=== PATIENT | male | born 1930 | race African-American/Black ===

== ENCOUNTER 2016-06-08 14:49 | Emergency (ER) | payer OTHER ==
[~2016-06-08] VITALS: Ht 175.3 cm; Wt 75.7 kg
[~2016-06-08 14:49] MED LIST: DOXAZOSIN MESYLA2 MG ORAL; FERROUS SULFAT325 MG ORAL; METFORMIN HCL500 M1 ORAL; PROSCAR5 MG ORAL
[2016-06-08] MEDS ORDERED: Albuterol ud Inhalation HHN ONE (15:30)
--- NOTE | 2016-06-08 15:35 | Emergency Room Report ---
History of Present Illness General Chief Complaint: Stroke Symptoms Source: Family Member Present Illness HPI Patient is an 85-year-old male who presented after having increased shortness of breath and abdominal pain. Per the patient's daughter patient having had pain for several years. This had been located in his right lower abdomen. 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 The patient denied any fever. He reported having some cough. Allergies: Coded Allergies: No Known Allergies (Unverified , 01/30/14) Patient History Past Medical History: see triage record Reviewed Nursing Documentation: PMH: Agreed, PSxH: Agreed Nursing Documentation-PMH Past Medical History: No History, Except For Hx Hypertension: Yes Hx Diabetes: Yes Hx Cancer: No Hx Gastrointestinal Problems: No Hx Neurological Problems: No Review of Systems All Other Systems: negative except mentioned in HPI Physical Exam Vital Signs Date Time Temp Pulse Resp B/P Pulse Ox O2 Delivery O2 Flow Rate FiO2 06/08/16 15:14 69 16 155/66 99 Room Air Sp02 EP Interpretation: reviewed, normal General Appearance: normal inspection, well appearing, no apparent distress, alert, GCS 15 Head: atraumatic ENT: normal ENT inspection, hearing grossly normal, normal voice Neck: normal inspection, full range of motion, supple, no bony tend Respiratory: normal inspection, lungs clear, normal breath sounds, no respiratory distress, no retraction, no wheezing Cardiovascular #1: regular rate, rhythm, no edema Gastrointestinal: normal inspection, normal bowel sounds, non tender, soft, no guarding, no hernia Genitourinary: no CVA tenderness Musculoskeletal: normal inspection, back normal, normal range of motion Neurologic: normal inspection, alert, oriented x3, responsive, coater helper III-XII nml as tested, motor strength/tone normal, speech normal Psychiatric: normal inspection, judgement/insight normal, mood/affect normal Skin: normal inspection, normal color, no rash Medical Decision Making Diagnostic Impression: Primary Impression: Gallstone Additional Impression: Prostatic hypertrophy, benign ER Course Patient presented for shortness of breath.Differential included but was not limited to anemia, pneumonia, pneumothorax, myocardial infarction, pericardial effusion, congestive heart failure, acidosis. Because of complexity of patient' s case laboratory testing and imaging studies were ordered.Lab for studies showed no evidence of acute infection. The patient was noted to have negative troponin. CT imaging of the head was ordered due to patient's recent fall anticoagulant use. CT the head read by radiology showed no evident hemorrhage with a chronic stable changes. CT abdomen and pelvis read by radiologist showed gallstones as well as hiatal hernia there were no acute inflammatory changes noted. The patient is advised to follow up with primary care doctor in 1-2 days. Patient is advised to return if any worsening condition or if any changes in status that are concerning. The patient daughter was advised that she may need to have the patient followup with urologist for his prostate issues. Labs Test 06/08/16 15:40 White Blood Count 6.4 K/UL (4.8-10.8) Red Blood Count 4.70 M/UL (4.70-6.10) Hemoglobin 12.8 G/DL (14.2-18.0) Hematocrit 42.1 % (42.0-52.0) Mean Corpuscular Volume 90 FL (80-99) Mean Corpuscular Hemoglobin 27.2 PG (27.0-31.0) Mean Corpuscular Hemoglobin Concent 30.3 G/DL (32.0-36.0) Red Cell Distribution Width 13.2 % (11.6-14.8) Platelet Count 148 K/UL (150-450) Mean Platelet Volume 7.2 FL (6.5-10.1) Neutrophils (%) (Auto) 56.1 % (45.0-75.0) Lymphocytes (%) (Auto) 30.8 % (20.0-45.0) Monocytes (%) (Auto) 7.4 % (1.0-10.0) Eosinophils (%) (Auto) 4.9 % (0.0-3.0) Basophils (%) (Auto) 0.9 % (0.0-2.0) Sodium Level 138 mEQ/L (135-145) Potassium Level 4.4 mEQ/L (3.4-4.9) Chloride Level 97 mEQ/L (98-107) Carbon Dioxide Level 25 mEQ/L (20-30) Anion Gap 16 (5-15) Blood Urea Nitrogen 26 mg/dL (7-23) Creatinine 1.5 mg/dL (0.7-1.2) Estimat Glomerular Filtration Rate mL/min (>60) Glucose Level 134 mg/dL (74-106) Lactic Acid Level 1.70 mmol/L (0.66-2.22) Calcium Level 10.4 mg/dL (8.6-10.2) Total Bilirubin 0.7 mg/dL (0.0-1.2) Aspartate Amino Transf (AST/SGOT) 17 U/L (5-40) Alanine Aminotransferase (ALT/SGPT) 7 U/L (3-41) Alkaline Phosphatase 93 U/L (40-129) Total Creatine Kinase 74 U/L (38-174) Creatine Kinase MB < 1.5 ng/mL (< 6.7) Creatine Kinase MB Relative Index Troponin I < 0.30 ng/mL (<=0.30) Pro-B-Type Natriuretic Peptide 110 pg/mL (0-450) Total Protein 8.1 g/dL (6.6-8.7) Albumin 4.7 g/dL (3.5-5.2) Globulin 3.4 g/dL Albumin/Globulin Ratio 1.3 (1.0-2.7) Last Vital Signs Date Time Temp Pulse Resp B/P Pulse Ox O2 Delivery O2 Flow Rate FiO2 06/08/16 15:14 69 16 155/66 99 Room Air Status: improved Disposition: HOME, SELF-CARE Condition: Stable Jani Barraza Jun 08, 2016 15:34
[2016-06-08 15:45] VITALS: BP 153/67
[2016-06-08 16:05] LABS: BASOPHILS % (AUTO) 0.9 % (0.0-2.0); EOSINOPHILS % (AUTO) 4.9 % (0.0-3.0); LYMPHOCYTES % (AUTO) 30.8 % (20.0-45.0); MEAN CORPUSCULAR HEMOGLOBIN 27.2 PG (27.0-31.0); MEAN CORPUSCULAR HGB CONC 30.3 G/DL (32.0-36.0); MEAN CORPUSCULAR VOLUME 90 FL (80-99); MEAN PLATELET VOLUME 7.2 FL (6.5-10.1); MONOCYTES % (AUTO) 7.4 % (1.0-10.0); NEUTROPHILS % (AUTO) 56.1 % (45.0-75.0); PLATELET COUNT 148 K/UL (150-450); RED CELL DISTRIBUTION WIDTH 13.2 % (11.6-14.8); WHITE BLOOD COUNT 6.4 K/UL (4.8-10.8)
[2016-06-08 16:21] LABS: ALANINE AMINOTRANSFERASE 7 U/L (3-41); ALBUMIN/GLOBULIN RATIO 1.3 (1.0-2.7); ANION GAP 16 (5-15); ASPARTATE AMINO TRANSFERASE 17 U/L (5-40); CALCIUM 10.4 mg/dL (8.6-10.2); CARBON DIOXIDE 25 mEQ/L (20-30); CHLORIDE 97 mEQ/L (98-107); CREATININE 1.5 mg/dL (0.7-1.2); HEMOLYSIS 15; POTASSIUM 4.4 mEQ/L (3.4-4.9); SODIUM 138 mEQ/L (135-145); TOTAL PROTEIN 8.1 g/dL (6.6-8.7)
[2016-06-08 16:26] LABS: TROPONIN I < 0.30 ng/mL (<=0.30)
[2016-06-08 16:32] LABS: CKMB < 1.5 ng/mL (< 6.7)
[2016-06-08 18:24] VITALS: BP 157/72
[2016-06-08 18:25] VITALS: BP 153/67
--- NOTE | 2016-06-09 09:33 | Diagnostic Imaging Report ---
Indication: Abdominal pain Technique: Continuous helical transaxial imaging of the abdomen and pelvis was obtained from the lung bases to the pubic symphysis. No intravenous contrast was administered. Coronal 2-D reformats were also obtained. Total Dose length Product (DLP): [address] Dose Index Volume (CTDIvol): 13 mGy Comparison: none Findings: The lung bases demonstrate mild bronchiectasis associated with some linear reticular densities likely scarring. Small hiatal hernia is present. There is artifact associated with the patient's arms. There are innumerable gallstones filling the gallbladder lumen. Aorta is calcified. There are hypodensities within the left kidney. These may be cysts but incompletely assessed on the current exam as obtained without contrast material. Suture noted in the right hemicolon indicative of partial resection. The appendix is not identified likely removed. IVC filter is present. There is a tiny high density focus in the lower pole the right kidney likely represent nonobstructive calculus. Diverticula are present in the colon. Urinary bladder is unremarkable. Prostate is enlarged measures 4.7 x 5.6 cm. There are dimension craniocaudal 6.4 cm. There is no free fluid or free air. Impression: Innumerable gallstones. Tiny nonobstructive stones within the lower pole the right kidney. Atherosclerotic vascular disease. A left renal masses likely cysts a. Suggest correlation with ultrasound. Status post partial right colonic resection. Basilar scarring and bronchiectasis. Mild diverticulosis Prostate hypertrophy Agree with the preliminary report by Dr. Mckeon. Note: There was suggestion of the possibility of iliac vein thrombosis. Could correlation with the contrast enhanced CT or ultrasound. Patient does have IVC filter in place. The CT scanner at [facility] is accredited by the [employer] and the scans are performed using protocols designed to limit radiation exposure to as low as reasonably achievable to attain images of sufficient resolution adequate for diagnostic evaluation.
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
--- NOTE | 2016-06-10 12:39 | Cardiology Report ---
APPROVED REPORT EKG Measurement Heart [id number] Normal sinus rhythm Left axis deviation Nonspecific T wave abnormality Abnormal ECG
--- NOTE | 2016-06-11 14:06 | Diagnostic Imaging Report ---
Indication: Headache Technique: Contiguous 5 mm thick transaxial imaging of the head obtained in a Siemens Sensation [address] scanner. Soft tissue and bone windows generated. Total Dose length Product (DLP): [address] Dose Index Volume (CTDIvol): 70.38 mGy Comparison: 04/04/16 Findings: There is mild prominence of the ventricles, basal cisterns, and cerebral sulci consistent with atrophy. Mild, nonspecific, white matter hypoattenuation is noted throughout the brain consistent with chronic small vessel disease. Old lacunar infarcts in the left thalamus and left putamen are again noted unchanged. There is no midline shift, edema, acute hemorrhage, mass effect, or abnormal extra-axial fluid collections. Bones and extra osseous soft tissues are unremarkable. Moderate heterogeneous opacification of the right maxillary sinus again demonstrated. Some calcification noted within the sinus indicative of inspissated mucus. Impression: No acute intracranial bleed, mass effect or edema. Mild atrophy of the brain. Old lacunar infarcts Nonspecific white matter hypoattenuation probably due to chronic small vessel disease. Chronic right maxillary sinusitis. The CT scanner at [facility] is accredited by the [employer] and the scans are performed using protocols designed to limit radiation exposure to as low as reasonably achievable to attain images of sufficient resolution adequate for diagnostic evaluation.
== END 2016-06-08 18:28 | disposition home or self-care (01) ==
LOC: EMR 15:30
DX: K80.80 Other cholelithiasis without obstruction (principal); N40.0 Benign prostatic hyperplasia without lower urinary tract symptoms; R06.02 Shortness of breath; R10.9 Unspecified abdominal pain; Z86.718 Personal history of other venous thrombosis and embolism; Z79.01 Long term (current) use of anticoagulants; E11.9 Type 2 diabetes mellitus without complications; K44.9 Diaphragmatic hernia without obstruction or gangrene; I10 Essential (primary) hypertension
CPT/HCPCS: 36415; 70450; 71010; 74176; 80053; 82550; 82553; 83605; 83880; 84484; 85025; 87040; 93005; 94640; 94664; 99284

== ENCOUNTER 2017-12-15 11:20 | Inpatient (IN) | payer MEDICARE, OTHER ==
[~2017-12-15] VITALS: Ht 177.8 cm; Wt 72.7 kg
[2017-12-15] MEDS ORDERED: Sodium Chloride 500ML 500 ML IV ONE (11:27)
[2017-12-15 11:59] LABS: BASOPHILS % (AUTO) 0.9 % (0.0-2.0); EOSINOPHILS % (AUTO) 2.2 % (0.0-3.0); HEMATOCRIT 37.5 % (42.0-52.0); HEMOGLOBIN 11.6 G/DL (14.2-18.0); MEAN CORPUSCULAR VOLUME 89 FL (80-99); MONOCYTES % (AUTO) 6.8 % (1.0-10.0); NEUTROPHILS % (AUTO) 72.1 % (45.0-75.0); PLATELET COUNT 183 K/UL (150-450); RED BLOOD COUNT 4.23 M/UL (4.70-6.10); RED CELL DISTRIBUTION WIDTH 12.6 % (11.6-14.8); WHITE BLOOD COUNT 8.5 K/UL (4.8-10.8)
--- NOTE | 2017-12-15 12:08 | Emergency Room Report ---
History of Present Illness General Chief Complaint: Syncope Source: Patient, EMS, Caregiver Present Illness HPI Patient presents with reports of syncopal episode Patient was moved to the commode to have a bowel movement the cartography teacher had gone downstairs to do laundry when she came back upstairs the patient was slumping to the side At this time has become more awake and alert Hospice Clinical Marketer reports about 30 seconds of lapse of consciousness There was no focal weakness at this time Patient reports that he feels better Denies any chest pain denies any back or flank pain Allergies: Coded Allergies: No Known Allergies (Unverified , 01/30/14) Patient History Past Medical History: see triage record Pertinent Family History: none Reviewed Nursing Documentation: PMH: Agreed; PSxH: Agreed Nursing Documentation-PMH Past Medical History: No History, Except For Hx Hypertension: Yes Hx Diabetes: Yes Hx Cancer: Yes - colon Hx Gastrointestinal Problems: No History Of Psychiatric Problem: Yes - dementia Hx Neurological Problems: No Hx Cerebrovascular Accident: Yes Review of Systems All Other Systems: negative except mentioned in HPI Physical Exam Vital Signs Date Time Temp Pulse Resp B/P (MAP) Pulse Ox O2 Delivery O2 Flow Rate FiO2 12/15/17 11:10 97.5 70 18 123/65 99 Room Air 97.5 Sp02 EP Interpretation: reviewed, normal General Appearance: well appearing, no apparent distress Head: normocephalic, atraumatic Eyes: bilateral eye PERRL, bilateral eye EOMI ENT: hearing grossly normal, normal pharynx, TMs + canals normal, uvula midline Neck: full range of motion, supple, no meningismus, no bony tend Respiratory: lungs clear, normal breath sounds, no rhonchi, no respiratory distress, no retraction, no accessory muscle use Cardiovascular #1: normal peripheral pulses, regular rate, rhythm, no edema, no gallop, no JVD, no murmur Gastrointestinal: normal bowel sounds, non tender, soft, no mass, no organomegaly, non-distended, no guarding, no hernia, no pulsatile mass, no rebound Genitourinary: no CVA tenderness Musculoskeletal: normal inspection Neurologic: responsive - Oriented to self and place, mothers helper III-XII nml as tested , motor strength/tone normal, sensory intact Psychiatric: mood/affect normal Skin: palpation normal, other - Previous bruising on the right tibial area skin avulsion left upper arm Lymphatic: normal inspection, no adenopathy Medical Decision Making Diagnostic Impression: Primary Impression: Syncope ER Course Patient is a fairly complex patient with multiple differential to consideration including but not limited to cardiac cardiopulmonary and vascular emergencies Patient appears mildly dehydrated further hydration was provided Blood work thus far appropriate Patient remains and cardiac monitoring and requires further inpatient care Labs Test 12/15/17 11:30 12/15/17 19:00 12/16/17 03:14 White Blood Count 8.5 K/UL (4.8-10.8) 8.1 K/UL (4.8-10.8) Red Blood Count 4.23 M/UL (4.70-6.10) 4.43 M/UL (4.70-6.10) Hemoglobin 11.6 G/DL (14.2-18.0) 12.1 G/DL (14.2-18.0) Hematocrit 37.5 % (42.0-52.0) 38.7 % (42.0-52.0) Mean Corpuscular Volume 89 FL (80-99) 87 FL (80-99) Mean Corpuscular Hemoglobin 27.4 PG (27.0-31.0) 27.2 PG (27.0-31.0) Mean Corpuscular Hemoglobin Concent 31.0 G/DL (32.0-36.0) 31.1 G/DL (32.0-36.0) Red Cell Distribution Width 12.6 % (11.6-14.8) 12.2 % (11.6-14.8) Platelet Count 183 K/UL (150-450) 187 K/UL (150-450) Mean Platelet Volume 6.2 FL (6.5-10.1) 6.9 FL (6.5-10.1) Neutrophils (%) (Auto) 72.1 % (45.0-75.0) 66.0 % (45.0-75.0) Lymphocytes (%) (Auto) 18.0 % (20.0-45.0) 23.4 % (20.0-45.0) Monocytes (%) (Auto) 6.8 % (1.0-10.0) 7.6 % (1.0-10.0) Eosinophils (%) (Auto) 2.2 % (0.0-3.0) 2.3 % (0.0-3.0) Basophils (%) (Auto) 0.9 % (0.0-2.0) 0.7 % (0.0-2.0) Sodium Level 138 MMOL/L (136-145) 142 MMOL/L (136-145) Potassium Level 3.9 MMOL/L (3.5-5.1) 4.0 MMOL/L (3.5-5.1) Chloride Level 107 MMOL/L (98-107) 108 MMOL/L (98-107) Carbon Dioxide Level 25 MMOL/L (21-32) 26 MMOL/L (21-32) Anion Gap 6 mmol/L (5-15) 8 mmol/L (5-15) Blood Urea Nitrogen 15 mg/dL (7-18) 24 mg/dL (7-18) Creatinine 1.6 MG/DL (0.55-1.30) 1.4 MG/DL (0.55-1.30) Estimat Glomerular Filtration Rate mL/min (>60) mL/min (>60) Glucose Level 155 MG/DL (74-106) 122 MG/DL (74-106) Calcium Level 9.6 MG/DL (8.5-10.1) 9.3 MG/DL (8.5-10.1) Total Bilirubin 1.1 MG/DL (0.2-1.0) Direct Bilirubin 0.3 MG/DL (0.0-0.3) Aspartate Amino Transf (AST/SGOT) 22 U/L (15-37) Alanine Aminotransferase (ALT/SGPT) 16 U/L (12-78) Alkaline Phosphatase 83 U/L (46-116) Total Creatine Kinase 91 U/L (26-308) Creatine Kinase MB 0.8 NG/ML (0.0-3.6) Creatine Kinase MB Relative Index 0.8 Troponin I 0.000 ng/mL (0.000-0.056) 0.000 ng/mL (0.000-0.056) 0.000 ng/mL (0.000-0.056) Pro-B-Type Natriuretic Peptide 238 pg/mL (0-125) Total Protein 7.1 G/DL (6.4-8.2) Albumin 3.1 G/DL (3.4-5.0) Globulin 4.0 g/dL Albumin/Globulin Ratio 0.8 (1.0-2.7) Lipase 132 U/L (73-393) Rhythm Strip Diag. Results EP Interpretation: yes Rate: 77 Rhythm: NSR, no PVC's, no ectopy Chest X-Ray Diagnostic Results Chest X-Ray Diagnostic Results : Chest X-Ray Ordered: Yes # of Views/Limited/Complete: 1 View Indication: Chest Pain EP Interpretation: Yes Interpretation: no consolidation, no effusion, no pneumothorax Impression: No acute disease Electronically Signed by: Mairne Pitts DO Last Vital Signs Date Time Temp Pulse Resp B/P (MAP) Pulse Ox O2 Delivery O2 Flow Rate FiO2 12/15/17 11:10 97.5 70 18 123/65 99 Room Air 97.5 Status: improved Disposition: ADMITTED INPATIENT Condition: Serious Marine Pitts DO Dec 15, 2017 12:08
[2017-12-15 12:10] VITALS: BP 135/55
[2017-12-15 12:18] LABS: ANION GAP 6 mmol/L (5-15); BLOOD UREA NITROGEN 15 mg/dL (7-18); CALCIUM 9.6 MG/DL (8.5-10.1); CARBON DIOXIDE 25 MMOL/L (21-32); CHLORIDE 107 MMOL/L (98-107); CREATININE 1.6 MG/DL (0.55-1.30); POTASSIUM 3.9 MMOL/L (3.5-5.1); SODIUM 138 MMOL/L (136-145)
[2017-12-15 12:29] LABS: ALANINE AMINOTRANSFERASE 16 U/L (12-78); ALBUMIN 3.1 G/DL (3.4-5.0); ALBUMIN/GLOBULIN RATIO 0.8 (1.0-2.7); ALKALINE PHOSPHATASE 83 U/L (46-116); ASPARTATE AMINO TRANSFERASE 22 U/L (15-37); BILIRUBIN,TOTAL 1.1 MG/DL (0.2-1.0); CKMB 0.8 NG/ML (0.0-3.6); CREATINE KINASE 91 U/L (26-308)
[2017-12-15 12:30] LABS: BILIRUBIN,DIRECT 0.3 MG/DL (0.0-0.3)
[2017-12-15 15:00] VITALS: BP 138/56
[2017-12-15] MEDS ORDERED: UNOBMED (15:21)
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
[2017-12-15] MEDS ORDERED: Propofol 200mg/20ml IV ONE (16:00)
[2017-12-15 16:59] VITALS: BP 145/72
[2017-12-15 17:15] VITALS: BP 142/70
[2017-12-15 20:00] VITALS: BP 144/65
[2017-12-15] MEDS: NovoLOG Insulin Flexpen SUBQ SCH (21:56)
[2017-12-16] VITALS: BP 151/72
--- NOTE | 2017-12-16 01:30 | History and Physical Report ---
DATE OF ADMISSION: 12/15/2017 HISTORY OF PRESENT ILLNESS: This is an 87-year-old male, who came to the emergency room with complaints of having passed out. On further questioning, he states he did not actually pass out, but just sort of felt unwell and did not know where he was. ER records note that he had one episode where the dry house attendant had taken him to the toilet and when she came back, the patient was slumped to the side. At this time, he is awake and responsive. Licensed Embalmer Supervisor reports unknown duration of loss of consciousness. PAST MEDICAL HISTORY: Notable for hypertension, CA colon, diabetes mellitus, and dementia. ALLERGIES: None reported. HOME MEDICATIONS: Proscar, Cardura, Feosol, , and metformin. REVIEW OF SYSTEMS: Denies any headaches, hematemesis, melena, or hematochezia. PHYSICAL EXAMINATION: GENERAL: Reveals a young male. VITAL SIGNS: Blood pressure 130/70, heart rate 84, respirations 18. HEENT: Unremarkable. LUNGS: Clear, breath sounds bilaterally. ABDOMEN: Soft. NEUROLOGIC: Nonfocal. LABORATORY AND DIAGNOSTIC DATA: Laboratory testing otherwise unremarkable. Troponins negative. IMPRESSION: 1. Syncope. 2. Dementia. 3. History of cancer of the colon. 4. Benign prostatic hyperplasia. 5. Hypertension. DISCUSSION: Continue medications. We will start IV fluids. Diabetic diet. Accu-Cheks before meals and at bedtime. We will follow carefully. We will observe. Check carotid duplex and 2D echo. Abraham Hardin M.D. DR: SILVIA JOB#: [id number] CC:
[2017-12-16 03:31] LABS: BASOPHILS % (AUTO) 0.7 % (0.0-2.0); EOSINOPHILS % (AUTO) 2.3 % (0.0-3.0); HEMATOCRIT 38.7 % (42.0-52.0); HEMOGLOBIN 12.1 G/DL (14.2-18.0); LYMPHOCYTES % (AUTO) 23.4 % (20.0-45.0); MEAN CORPUSCULAR VOLUME 87 FL (80-99); MONOCYTES % (AUTO) 7.6 % (1.0-10.0); PLATELET COUNT 187 K/UL (150-450); RED BLOOD COUNT 4.43 M/UL (4.70-6.10); RED CELL DISTRIBUTION WIDTH 12.2 % (11.6-14.8); WHITE BLOOD COUNT 8.1 K/UL (4.8-10.8)
[2017-12-16 03:34] LABS: ANION GAP 8 mmol/L (5-15); BLOOD UREA NITROGEN 24 mg/dL (7-18); CALCIUM 9.3 MG/DL (8.5-10.1); CARBON DIOXIDE 26 MMOL/L (21-32); CHLORIDE 108 MMOL/L (98-107); CREATININE 1.4 MG/DL (0.55-1.30); SODIUM 142 MMOL/L (136-145)
[2017-12-16 04:00] VITALS: BP 148/81
[2017-12-16] MEDS: NovoLOG Insulin Flexpen SUBQ SCH ×4 (05:27→20:53)
[2017-12-16 08:00] VITALS: BP 146/78
[2017-12-16] MEDS ORDERED: metFORMIN 500mg tab ORAL SCH (09:00)
[2017-12-16] MEDS ORDERED: Doxazosin 4mg tab ORAL SCH (09:00)
[2017-12-16] MEDS: Doxazosin 4mg tab ORAL SCH (09:37)
[2017-12-16 12:00] VITALS: BP 120/67
--- NOTE | 2017-12-16 13:23 | Cardiology Report ---
APPROVED REPORT EXAM: Two-dimensional and M-mode echocardiogram with Doppler and color Doppler. INDICATION Syncope M-Mode DIMENSIONS IVSd1.2 (0.7-1.1cm)Left Atrium (MM)3.4 (1.6-4.0cm) LVDd4.5 (3.5-5.6cm)Aortic Root3.9 (2.0-3.7cm) PWd0.9 (0.7-1.1cm)Aortic Cusp Exc.1.9 (1.5-2.0cm) IVSs1.8 cm LVDs3.5 (2.5-4.0cm) PWs1.0 cm Normal left ventricular chamber size, systolic function and wall motion. Left ventricular ejection fraction estimated to be 60-65 %. Mild left ventricular hypertrophy by 2-D. Anterior Echo-free space, may be due to pericardial fat or effusion. All other cardiac chamber sizes are within normal limits. Focal aortic valve sclerosis with adequate cusp excursion. Mild aortic root dilatation. Thickened mitral valve leaflets with normal excursion. Mitral annulus and aortic root calcification. Pulmonic valve not well visualized. Normal tricuspid valve structure. IVC not seen A color flow and spectral Doppler study was performed and revealed: Mild aortic regurgitation. Mild mitral regurgitation. Mitral diastolic velocities suggest reduced left ventricular relaxation c/w mild LV diastolic dysfunction. Moderate tricuspid regurgitation. Tricuspid systolic velocities suggests peak right ventricular systolic pressure of 35+ ra pressure mmHg, consistent with moderate pulmonary hypertension. Pulmonic regurgitation present.
[2017-12-16 16:00] VITALS: BP 154/65
--- NOTE | 2017-12-16 17:10 | Pulmonology Progress Note ---
Assessment/Plan Assessment/Plan IMPRESSION: 1. Syncope. 2. Dementia. 3. History of cancer of the colon. 4. Benign prostatic hyperplasia. 5. Hypertension. DISCUSSION: Continue medications. DC IV fluids. Diabetic diet. Accu-Cheks before meals and at bedtime. \I will follow carefully. Await results of carotid duplex and 2D echo. Subjective Interval Events: feeling better. Echocardiogram done. Constitutional: Reports: no symptoms HEENT: Repors: no symptoms Respiratory: Reports: no symptoms Cardiovascular: Reports: no symptoms Gastrointestinal/Abdominal: Reports: no symptoms Allergies: Coded Allergies: No Known Allergies (Unverified , 01/30/14) Objective Last 24 Hour Vital Signs Date Time Temp Pulse Resp B/P (MAP) Pulse Ox O2 Delivery O2 Flow Rate FiO2 12/16/17 16:00 98.1 64 18 154/65 (94) 96 98.1 12/16/17 16:00 63 12/16/17 12:00 66 12/16/17 12:00 97.4 63 18 120/67 (84) 96 97.4 12/16/17 09:00 Room Air 12/16/17 08:00 97.2 73 20 146/78 (100) 95 97.2 12/16/17 08:00 65 12/16/17 04:00 71 12/16/17 04:00 97.7 67 21 148/81 (103) 97 97.7 12/16/17 00:00 97.8 72 22 151/72 (98) 97 97.8 12/16/17 00:00 73 12/15/17 21:00 Room Air 12/15/17 20:00 97.4 60 19 144/65 (91) 97 97.4 12/15/17 20:00 74 12/15/17 18:38 97.0 63 20 145/72 100 Room Air 97.0 12/15/17 17:49 Room Air 12/15/17 17:42 65 12/15/17 17:15 97.3 18 142/70 (94) 97 97.3 Intake and Output 12/15/17 12/16/17 19:00 07:00 Intake Total 575 ml 1100 ml Balance 575 ml 1100 ml Intake Oral 0 ml 200 ml IV Total 575 ml 900 ml # Voids 3 General Appearance: no acute distress HEENT: normocephalic Respiratory/Chest: chest wall non-tender, lungs clear Cardiovascular: normal peripheral pulses, normal rate Abdomen: normal bowel sounds Laboratory Tests 12/15/17 19:00: Troponin I 0.000 12/16/17 03:14: Troponin I 0.000, White Blood Count 8.1, Red Blood Count 4.43L, Hemoglobin 12.1L , Hematocrit 38.7L, Mean Corpuscular Volume 87, Mean Corpuscular Hemoglobin 27.2 , Mean Corpuscular Hemoglobin Concent 31.1L, Red Cell Distribution Width 12.2, Platelet Count 187, Mean Platelet Volume 6.9, Neutrophils (%) (Auto) 66.0, Lymphocytes (%) (Auto) 23.4, Monocytes (%) (Auto) 7.6, Eosinophils (%) (Auto) 2.3, Basophils (%) (Auto) 0.7, Sodium Level 142, Potassium Level 4.0, Chloride Level 108H, Carbon Dioxide Level 26, Anion Gap 8, Blood Urea Nitrogen 24H, Creatinine 1.4H, Estimat Glomerular Filtration Rate , Glucose Level 122H, Calcium Level 9.3 12/16/17 11:00: Troponin I 0.000 Current Medications Medications (Trade) Dose Ordered Sig/Elizabeth Route PRN Reason Start Time Stop Time Status Last Admin Dose Admin Dextrose (Dextrose 50%) 25 ml STAT PRN IV Hypoglycemia 12/15/17 17:45 01/14/18 17:44 Dextrose (Dextrose 50%) 50 ml STAT PRN IV Hypoglycemia 12/15/17 17:45 01/14/18 17:44 Doxazosin Mesylate (Cardura) 4 mg DAILY ORAL 12/16/17 09:00 01/15/18 08:59 12/16/17 09:37 Ferrous Sulfate (Feosol) 325 mg THREE TIMES A DAY ORAL 12/15/17 18:00 01/14/18 17:59 12/16/17 13:15 Finasteride (Proscar) 5 mg DAILY ORAL 12/16/17 09:00 01/15/18 08:59 12/16/17 09:37 Insulin Aspart (NovoLOG) BEFORE MEALS AND HS SUBQ 12/15/17 21:00 01/14/18 20:59 12/16/17 11:27 Sodium Chloride 1,000 ml @ 75 mls/hr [id number] 12/15/17 17:32 9/5/18 17:31 12/16/17 05:27 Abraham Hardin MD Dec 16, 2017 17:10
[2017-12-16 20:00] VITALS: BP 144/69
[2017-12-17] VITALS: BP 145/63
[2017-12-17 04:00] VITALS: BP 149/71
[2017-12-17] MEDS: NovoLOG Insulin Flexpen SUBQ SCH ×2 (05:45→11:53)
[2017-12-17 08:00] VITALS: BP 102/63
--- NOTE | 2017-12-17 08:23 | Pulmonology Progress Note ---
Assessment/Plan Assessment/Plan IMPRESSION: 1. Syncope. 2. Dementia. 3. History of cancer of the colon. 4. Benign prostatic hyperplasia. 5. Hypertension. DISCUSSION: All workup negative Will dc home Able to ambulate Subjective Interval Events: Feeling better; ECHO normal; tele normal Constitutional: Reports: no symptoms HEENT: Repors: no symptoms Respiratory: Reports: no symptoms Cardiovascular: Reports: no symptoms Gastrointestinal/Abdominal: Reports: no symptoms Genitourinary: Reports: no symptoms Neurologic: Reports: no symptoms Allergies: Coded Allergies: No Known Allergies (Unverified , 01/30/14) Objective Last 24 Hour Vital Signs Date Time Temp Pulse Resp B/P (MAP) Pulse Ox O2 Delivery O2 Flow Rate FiO2 12/17/17 04:00 61 12/17/17 04:00 98.1 63 20 149/71 (97) 97 98.1 12/17/17 00:00 97.8 72 18 145/63 (90) 97 97.8 12/16/17 21:00 Room Air 12/16/17 20:00 70 12/16/17 20:00 98.1 72 18 144/69 (94) 97 98.1 12/16/17 16:00 98.1 64 18 154/65 (94) 96 98.1 12/16/17 16:00 63 12/16/17 12:00 66 12/16/17 12:00 97.4 63 18 120/67 (84) 96 97.4 12/16/17 09:00 Room Air Intake and Output 12/16/17 12/17/17 19:00 07:00 Intake Total 315 ml 675 ml Output Total 200 ml Balance 115 ml 675 ml Intake Oral 240 ml IV Total 75 ml 675 ml Output Urine Total 200 ml # Voids 1 4 # Bowel Movements 1 General Appearance: no acute distress HEENT: normocephalic Respiratory/Chest: chest wall non-tender, normal breath sounds Cardiovascular: normal peripheral pulses Abdomen: normal bowel sounds Laboratory Tests 12/16/17 11:00: Troponin I 0.000 Current Medications Medications (Trade) Dose Ordered Sig/Elizabeth Route PRN Reason Start Time Stop Time Status Last Admin Dose Admin Dextrose (Dextrose 50%) 25 ml STAT PRN IV Hypoglycemia 12/15/17 17:45 01/14/18 17:44 Dextrose (Dextrose 50%) 50 ml STAT PRN IV Hypoglycemia 12/15/17 17:45 01/14/18 17:44 Doxazosin Mesylate (Cardura) 4 mg DAILY ORAL 12/16/17 09:00 01/15/18 08:59 12/16/17 09:37 Ferrous Sulfate (Feosol) 325 mg THREE TIMES A DAY ORAL 12/15/17 18:00 01/14/18 17:59 12/16/17 17:11 Finasteride (Proscar) 5 mg DAILY ORAL 12/16/17 09:00 01/15/18 08:59 12/16/17 09:37 Insulin Aspart (NovoLOG) BEFORE MEALS AND HS SUBQ 12/15/17 21:00 01/14/18 20:59 12/16/17 20:53 Sodium Chloride 1,000 ml @ 75 mls/hr [id number] IVLG 12/15/17 17:32 01/14/18 17:31 12/16/17 21:01 Abraham Hardin MD Dec 17, 2017 08:23
[2017-12-17] MEDS: Doxazosin 4mg tab ORAL SCH (09:01)
[2017-12-17 12:00] VITALS: BP 109/59
--- NOTE | 2017-12-17 16:15 | Cardiology Report ---
APPROVED REPORT EKG Measurement Heart [id number] Normal sinus rhythm Rightward axis Nonspecific ST and T wave abnormality Abnormal ECG
--- NOTE | 2017-12-18 06:40 | Discharge Summary ---
Discharge Summary Discharge Summary _ DATE OF ADMISSION: 12/15/2017 DATE OF DISCHARGE: 12/17/2017 BRIEF HOSPITAL COURSE: Patient is an 87-year-old male, who came to the emergency room with complaints of passing out. On further questioning, he actually did not pass out, but sort of felt unwell and did not know where he was. ER records noted that there was an episode when the hand laminator took him to the toilet, when hand laminator came back, patient was slumped to the side. Choir Director reported unknown duration of loss of consciousness. He has medical history notable for hypertension, CA of the colon, diabetes mellitus and dementia. On evaluation at ED, vital signs were stable. Blood work did not show any leukocytosis. Creatinine was elevated to 1.6. Patient appeared dehydrated and was given IV hydration. BNP was 238. Troponin was negative. EKG showed normal sinus rhythm with rate of 77. Chest x-ray showed no acute disease. He was then admitted for evaluation of syncope. He was given IV hydration. Blood glucose was monitored. He was placed on NovoLog sliding scale and metformin. He was given Proscar and Cardura. He was continued on iron supplements 3 times a day. He had an echocardiogram done that showed ejection fraction of 60-65%, with normal left ventricular size, function and wall motion. There was mild aortic regurgitation, mild mitral regurgitation, diastolic dysfunction and moderate pulmonary hypertension. Carotid duplex done did not show any significant plaques in the right and left common carotid arteries. There was irregular plaque in the internal and external carotid artery with Doppler imaging showing minimal stenosis. Vertebral arteries were patent without evidence of stenosis or steal. Troponins were negative. There was no recurrence of syncopal episode, no arrhythmia. Patient was eventually cleared for discharge home. FINAL DIAGNOSES: Syncope Dementia Cancer of the colon BPH Hypertension Diabetes mellitus DISPOSITION: Patient was discharged home. DISCHARGE MEDICATIONS: Refer to Discharge Medication List. DISCHARGE INSTRUCTIONS: Follow up with PCP in a week. I have been assigned to dictate discharge summary on this account, and I was not involved in the patient's management. Janie Mckeon NP Dec 18, 2017 06:40
== END 2017-12-17 14:46 | disposition home or self-care (01) | DRG 312 ==
LOC: EDBD 11:20 → EMR 12:06 → 2E 14:05 → EDBEDREQ 15:32 → 2E 12-16 10:38
DX: R55 Syncope and collapse (principal); C18.9 Malignant neoplasm of colon, unspecified; I10 Essential (primary) hypertension; E11.9 Type 2 diabetes mellitus without complications; F03.90 Unspecified dementia, unspecified severity, without behavioral disturbance, psychotic disturbance, mood disturbance, and anxiety; N40.0 Benign prostatic hyperplasia without lower urinary tract symptoms; E86.0 Dehydration; I35.1 Nonrheumatic aortic (valve) insufficiency; I34.0 Nonrheumatic mitral (valve) insufficiency; I27.20 Pulmonary hypertension, unspecified
CPT/HCPCS: 36415; 71045; 80048; 80053; 82248; 82550; 82553; 82962; 83690; 83880; 84484; 85025; 93005; 93306; 93880; J1815